=== PATIENT | male | born 1950 | race Caucasian/White ===

== ENCOUNTER 2017-07-02 10:19 | Day surgery (SDC) | payer MEDICARE ==
[2017-07-02 12:45] LABS: HEMOGLOBIN 14.2 g/dL (14.1-18.0)
[2017-07-02 12:47] LABS: LYMPH % 27.7 % (10-50)
[2017-07-02 12:57] LABS: BUN 12 mg/dL (7-18); GFR (ESTIMATED) 67 ML/MIN (>60)
--- NOTE | 2017-07-02 13:40 | RADIOLOGY REPORT PS360 ---
CARDIAC CATHETERIZATION DATE OF CATHETERIZATION:07/02/2017 12:46 PM PROCEDURES: 1. Left heart catheterization 2. Left ventriculogram 3. Selective coronary angiogram INDICATION FOR TEST: 1. Nonsustained ventricular tachycardia 2. Abnormal stress Myoview 3. Risk factors for coronary artery disease Informed consent was obtained prior to the procedure. COMPLICATIONS: None ESTIMATED BLOOD LOSS: Less than 10 ml. TECHNIQUE: One percent lidocaine used to anesthetize the right anterior aspect of the wrist. The right radial artery was accessed via the Seldinger technique. A 6 [place] sheath was placed in the right radial artery. 2.5 mg of verapamil, 800 mcg of nitroglycerin and 5000 U Heparin were given through the arterial sheath. The Faby catheter was also used to perform left heart catheterization and left ventriculography. At the end of the procedure the patient was transferred to the post-op holding area in stable condition for arterial sheath removal. ANGIOGRAPHIC RESULTS: 1. The left main artery normal 2. The left anterior descending artery is proximally normal with a mild 20% mid vessel stenosis after the first diagonal artery 3. The circumflex artery is nondominant yet still large caliber vessel with mild vascular ectasia and no focal stenosis 4. The right coronary artery is a large dominant vessel with mild proximal vascular ectasia with no focal atherosclerotic plaque identified 5. The JACKSON ventriculogram reveals 65% 6. The left ventricular end-diastolic pressure 10 mmHg IMPRESSION: 1. Mild nonflow limiting atherosclerotic plaque with diffuse mild vascular ectasia which is clinically insignificant 2. Normal ejection fraction 3. Normal left ventricular end-diastolic pressure PLAN: 1. Patient did have an impressive 10-12 beat run of ventricular tachycardia. If patient can tolerate, I would recommend a low dose beta freddy such as bisoprolol 5 mg nightly 2. Aspirin 81 mg daily 3. LDL less than 100 4. Risk factor modification 5. At this time the ventricular tachycardia is likely clinically insignificant
[2017-07-02 16:35] VITALS: BP 154/83
== END 2017-07-02 16:35 | disposition home or self-care (01) ==
LOC: CARDIO 10:19 → SDC 10:19 → EDSTATUS 10:30 → CARDIO 10:30 → SDC 16:35
PROVIDERS: Internal Medicine
PROC: 4A023N7 Measurement of Cardiac Sampling and Pressure, Left Heart, Percutaneous Approach (ICD-10-PCS; principal; 2017-07-02)
PROC: B2111ZZ Fluoroscopy of Multiple Coronary Arteries using Low Osmolar Contrast (ICD-10-PCS; 2017-07-02)
PROC: B2151ZZ Fluoroscopy of Left Heart using Low Osmolar Contrast (ICD-10-PCS; 2017-07-02)
DX: R94.39 Abnormal result of other cardiovascular function study (principal); I47.2 Ventricular tachycardia; I10 Essential (primary) hypertension; I47.1 Supraventricular tachycardia